=== PATIENT | male | born 1955 | race Caucasian/White ===

== ENCOUNTER 2024-03-19 09:20 | Outpatient (CLI) | payer SELFPAY | END 2024-03-19 09:21 | disposition home or self-care (01) | LOC: NFLDREF 03-23 08:54 | PROVIDERS: PCP Family Medicine; Referring Provider Family Medicine; Visit Provider Family Medicine | DX: Z79.01 Long term (current) use of anticoagulants (principal) | CPT/HCPCS: 85610 ==

== ENCOUNTER 2024-09-06 13:24 | Outpatient (CLI) | payer MEDICARE, SELFPAY | END 2024-09-06 13:25 | disposition home or self-care (01) | PROVIDERS: PCP Family Medicine; Visit Provider Family Medicine | DX: E78.5 Hyperlipidemia, unspecified (principal); R53.83 Other fatigue; Z12.5 Encounter for screening for malignant neoplasm of prostate | CPT/HCPCS: 80048; 80061; 84443; 85025; G0103 ==

== ENCOUNTER 2024-09-14 14:32 | Outpatient (CLI) | payer MEDICARE, OTHER, SELFPAY ==
--- NOTE | 2024-09-14 15:00 | CRLHL7_ITS ---
For Patients: As a result of the Century Cures Act, medical imaging exams and procedure reports are released immediately into your electronic medical record. You may view this report before your referring provider. If you have questions, please contact your health care provider. Indication: HX TB, HX OF PULMONARY EMBOLISM Technique: CT Chest W/95CC [id number] intravenous contrast Please note that all CT scans at this facility use dose modulation, iterative reconstruction, and/or weight-based dosing when appropriate to reduce radiation dose to as low as reasonably achievable. Comparison: CT 01/19/2024 Findings: Resolution of the previously noted pulmonary emboli. Upper limits of normal right hilar lymph node noted. Reticular scarring within the right upper lobe including bronchiectasis and right apical pleural thickening. Underlying emphysema. Scarring also present within the anterior aspect of the right upper lobe. Chronic bronchiectasis within the left lower lobe with associated partial mucous plugging. No fracture. Impression: Resolution of the previously noted pulmonary emboli. Chronic scarring/volume loss in the right upper lobe with associated bronchiectasis and pleural thickening. Chronic scarring/bronchiectasis with volume loss within the left lower lobe Including partial mucous plugging. Emphysematous changes. A few scattered sub cm mediastinal and hilar lymph nodes. Please note that all CT scans at this facility use dose modulation, iterative reconstruction, and/or weight-based dosing when appropriate to reduce radiation dose to as low as reasonably achievable. Dictated by Dave Zimmerman MD @ 09/14/2024 3:58:56 PM (Electronically Signed)
== END 2024-09-14 14:33 | disposition home or self-care (01) ==
PROVIDERS: PCP Family Medicine; Visit Provider Family Medicine
DX: A15.0 Tuberculosis of lung (principal); J44.9 Chronic obstructive pulmonary disease, unspecified; Z86.711 Personal history of pulmonary embolism
CPT/HCPCS: 71260; Q9967